=== PATIENT | female | born 1955 | race Caucasian/White ===

== ENCOUNTER → 2020-05-15 | Outpatient (CLI) | payer OTHER | LOC: MC.RAD 13:43 | DX: Z12.31 Encounter for screening mammogram for malignant neoplasm of breast (principal) ==

== ENCOUNTER 2020-08-30 07:23 | Day surgery (SDC) | payer OTHER ==
[~2020-08-30] VITALS: Ht 170.2 cm; Wt 76.6 kg
[2020-08-30 07:49] VITALS: BP 144/86; PULSE 71; TEMP 98.5
[2020-08-30] MEDS ORDERED: TENORMIN 5050 MG/TAB PO (08:14)
[2020-08-30] MEDS ORDERED: NORVASC 10MG10 MG PO (08:15)
[2020-08-30] MEDS ORDERED: PRINZIDE 12.5 M1 TA1 PO (08:16)
[2020-08-30] MEDS ORDERED: K-DUR 10 MEQ T10 MEQ PO (08:17)
[2020-08-30] MEDS ORDERED: LIPITOR20 MG PO (08:17)
[2020-08-30] MEDS ORDERED: ASTEPRO205.5 MCG/ NS (08:18)
[2020-08-30] MEDS ORDERED: VITAMIN B12 681 TAB PO (08:19)
[2020-08-30] MEDS ORDERED: TRIAMCINOLONE A15 G1 TP (08:19)
[2020-08-30] MEDS ORDERED: B-12 500 MCG PO (08:20)
[2020-08-30] MEDS ORDERED: VITAMIND3 5000 PO (08:21)
[2020-08-30 09:15] VITALS: BP 120/69; PULSE 64
--- NOTE | 2020-08-30 09:15 | NUR ---
TO BAY 2 PER CART FROM ENDOSCOPY. ALERT ORIENTED X3, TALKING TO STAFF AND . AMBULATED TO RECLINER WITH 2 ASSIST AND TOLERATED WELL. DENIES PAIN OR DISCOMFORT.
[2020-08-30 09:30] VITALS: BP 101/68; PULSE 59
--- NOTE | 2020-08-30 09:30 | NUR ---
SATS VARY FROM 90-93% IF ASK TO TAKE DEEP BREATHS SATS INCREASE TO 95-96% RECEIVED WATER AND CRACKERS.
[2020-08-30 09:45] VITALS: BP 119/81; PULSE 70
--- NOTE | 2020-08-30 09:45 | NUR ---
ATE 100% AND TOLERATED WELL.
--- NOTE | 2020-08-30 09:50 | NUR ---
RECEIVED DISCHARGE INSTRUCTIONS AND VERBALIZED UNDERSTANDING. DISCONTINUED IV AND INT- CATHETER INTACT.
--- NOTE | 2020-08-30 10:00 | NUR ---
DR RICKS INTO TALK WITH PATIENT AND .
--- NOTE | 2020-08-30 10:10 | NUR ---
DISCHARGED PER WC BY NURSING STAFF TO PRIVATE CAR IN CARE OF REKHA.
== END 2020-08-30 10:20 | disposition home or self-care (01) ==
LOC: SDCO 07:23
DX: Z12.11 Encounter for screening for malignant neoplasm of colon (principal); D12.4 Benign neoplasm of descending colon; K57.30 Diverticulosis of large intestine without perforation or abscess without bleeding; I10 Essential (primary) hypertension; J30.9 Allergic rhinitis, unspecified; G80.9 Cerebral palsy, unspecified; E87.6 Hypokalemia; E78.5 Hyperlipidemia, unspecified; Z79.899 Other long term (current) drug therapy; Z80.0 Family history of malignant neoplasm of digestive organs
CPT/HCPCS: J2704; J7030

== ENCOUNTER → 2021-06-24 | Outpatient (CLI) | payer OTHER ==
[~2021-06-24] MED LIST: ASTEPRO205.5 MCG/ NS; B-12 500 MCG PO; K-DUR 10 MEQ T10 MEQ PO; LIPITOR20 MG PO; NORVASC 10MG10 MG PO; PRINZIDE 12.5 M1 TA1 PO; TENORMIN 5050 MG/TAB PO; TRIAMCINOLONE A15 G1 TP; VITAMIN B12 681 TAB PO; VITAMIND3 5000 PO
== END ==
LOC: MC.RAD 13:24
DX: Z12.31 Encounter for screening mammogram for malignant neoplasm of breast (principal); Z80.3 Family history of malignant neoplasm of breast

== ENCOUNTER 2022-01-31 18:12 | Emergency (ER) | payer OTHER ==
[~2022-01-31] VITALS: Ht 170.2 cm; Wt 72.7 kg
[2022-01-31 18:32] VITALS: BP 151/72; TEMP 97.5
[2022-01-31] MEDS ORDERED: PROTONIX 40MG T40 MG PO (19:47)
[2022-01-31 20:06] VITALS: PULSE 76
== END 2022-01-31 20:11 | disposition home or self-care (01) ==
LOC: COL.ER 18:12
DX: R13.10 Dysphagia, unspecified (principal); Z20.822 Contact with and (suspected) exposure to COVID-19
CPT/HCPCS: J2550

== ENCOUNTER → 2022-07-16 | Outpatient (CLI) | payer MEDICARE, OTHER ==
[~2022-07-16] MED LIST changes: +PROTONIX 40MG T40 MG PO
== END ==
LOC: MC.RAD 13:19
DX: Z12.31 Encounter for screening mammogram for malignant neoplasm of breast (principal)